=== PATIENT | female | born 1980 | race Caucasian/White ===

== ENCOUNTER 2018-03-08 18:03 | Inpatient (IN) | payer MEDICAID ==
[~2018-03-08] VITALS: Ht 162.6 cm; Wt 103.0 kg
[~2018-03-08 18:03] MED LIST: ABILIFY 5 MG TAB5 M1; ACETAMINOPHEN-1 EAC1 PO; ADDERALL; AMITRIPTYLINE H50 M3 PO; CARAFATE; CARISOPRODOL 3350 MG PO; CIPROFLOXACIN500 M1 PO; CYMBALTA20 MG PO; DEPAKOTE ER500 MG PO; DOXEPIN HCL100 MG PO; FAMOTIDINE 20 M20 MG PO; HYDROCODON-ACE1 EAC7 PO; HYDROCODONE-AP1 EAC6 PO; IBUPROFEN 800800 MG PO; KEPPRA 500 MG500 M1 PO; LYRICA 50 MG50 MG PO; MEDI PO; MEDROLDOSEPACK PO; MONISTAT 31 EACH VG; NEXIUM40 MG PO; NORCO 5-325 TA1 EACH PO; OMEPRAZOLE; PERCOCET 5-3251 EACH PO; PROAIR HFA8.5 GM INH; PROMETHAZINE D480 ML PO; PROZAC; PROZAC 20 MG20 M1 PO; PYRIDIUM100 M1 PO; ROBAXIN 750 MG750 M1 PO; TIZANIDINE HCL2 M1; TRAMADOL 50 MG50 MG PO; WELLBUTRIN 100100 MG; ZPAK PO; [UNRECOGNIZED DRUG - OTHER]
[2018-03-08 18:18] VITALS: BP 155/102
[2018-03-08 18:27] LABS: HEMATOCRIT 41.2 % (37.0-47.0); HEMOGLOBIN 13.8 gm/dL (12.0-15.0); MCH 32.1 pg (26.0-34.0); MCHC 33.6 g/dL (28.0-37.0); MCV 95.6 fL (80.0-100.0); MPV 8.2 fl. (7.2-11.1); NUCLEATED RBCS 0 /100WBC; PLATELET COUNT* 358 thou/uL (150-400); RBC 4.31 mil/uL (4.20-5.00); RDW-CV 13.7 % (10.5-14.5); WBC 21.2 thou/uL (4.0-11.0)
[2018-03-08 18:33] LABS: CALCIUM 8.8 mg/dL (8.5-10.1); POTASSIUM 3.4 mmol/L (3.5-5.1)
[2018-03-08 18:37] LABS: ALBUMIN 3.2 g/dL (3.4-5.0); TOTAL BILIRUBIN 1.1 mg/dL (<0.1-1.0); TOTAL PROTEIN 7.9 g/dL (6.4-8.2)
[2018-03-08 18:54] LABS: URINE BILIRUBIN NEGATIVE (Negative); URINE BLOOD TRACE (Negative); URINE CLARITY SL CLOUDY; URINE COLOR YELLOW; URINE GLUCOSE-RANDOM NEGATIVE (Negative); URINE KETONES TRACE (Negative); URINE LEUKOCYTES-REFLEX 1+ (Negative); URINE NITRITE-REFLEX NEGATIVE (Negative); URINE PROTEIN TRACE (Negative); URINE SPECIFIC GRAVITY >= 1.030 (1.005-1.030); URINE UROBILINOGEN 0.2 E.U./dl (0.2-1.0)
[2018-03-08 19:03] LABS: MUCUS >6 Heavy strn/LPF (None Seen); SQUAMOUS >10 Many /LPF (0-3)
[2018-03-08 19:04] LABS: HYALINE CASTS 0-3 Few /LPF (None Seen)
[2018-03-08 19:05] LABS: BACTERIA-REFLEX >30 Many /HPF (None Seen); CRYSTALS None Seen /LPF (None Seen); URINE WBC-REFLEX >25 Many /HPF (0-5)
[2018-03-08 19:06] LABS: URINE RBC 3-10 Few /HPF (0-2)
[2018-03-08 19:19] LABS: ABSOLUTE LYMPHOCYTES 1.1 thou/uL (0.8-5.3); ABSOLUTE MONOCYTES 0.4 thou/uL (0.0-1.2); ABSOLUTE NEUTROPHILS 19.7 thou/uL (1.6-8.1); CLUMPED PLTS OCCASIONAL; LARGE PLATELETS OCCASIONAL; PLATELET ESTIMATE ADEQUATE
[2018-03-08 21:45] VITALS: BP 108/65
[2018-03-08 21:50] VITALS: BP 124/77
[2018-03-09] MEDS ORDERED: KEPPRA250 MG PO (00:32)
[2018-03-09] MEDS ORDERED: KEPPRA250 MG (00:33)
[2018-03-09 04:02] LABS: ABSOLUTE LYMPHOCYTES 1.2 thou/uL (0.8-5.3); ABSOLUTE MONOCYTES 0.8 thou/uL (0.0-1.2); ABSOLUTE NEUTROPHILS 17.6 thou/uL (1.6-8.1); BASOPHILS 0.1 %; HEMATOCRIT 37.2 % (37.0-47.0); HEMOGLOBIN 12.1 gm/dL (12.0-15.0); LYMPHOCYTES 6.2 %; MCH 31.8 pg (26.0-34.0); MCHC 32.4 g/dL (28.0-37.0); MONOCYTES 4.3 %; MPV 8.5 fl. (7.2-11.1); NUCLEATED RBCS 0 /100WBC; POLYS 89.4 %; RDW-CV 14.2 % (10.5-14.5); WBC 19.7 thou/uL (4.0-11.0)
[2018-03-09 04:23] LABS: PLATELET COUNT* 271 thou/uL (150-400)
[2018-03-09 04:34] LABS: ALBUMIN 2.7 g/dL (3.4-5.0); CALCIUM 8.6 mg/dL (8.5-10.1); POTASSIUM 3.6 mmol/L (3.5-5.1); TOTAL BILIRUBIN 0.7 mg/dL (<0.1-1.0); TOTAL PROTEIN 6.4 g/dL (6.4-8.2)
--- NOTE | 2018-03-09 06:09 | NUR ---
PT ARRIVED ON UNIT, ORIENTED TO ROOM, FALL AGREEMENT WENT OVER AND SIGNED, PT STATED UNDERSTANDING. ASSESSMENT DOCUMENTED. MEDS GIVEN PER E-MAR. PT REPORTED PAIN, PAIN MEDICATION GIVEN PER E-MAR WITH RELIEF. IV PATENT, FLUIDS INFUSING. WILL CONTINUE WITH PLAN OF CARE.
[2018-03-09 08:00] VITALS: BP 118/67
[2018-03-09 12:04] LABS: AMP/METHAMP POSITIVE (Negative); BARBITURATES Negative (Negative); BENZODIAZEPINES Negative (Negative); COCAINE Negative (Negative); METHADONE Negative (Negative); OPIATES Negative (Negative); PCP Negative (Negative); THC POSITIVE (Negative)
[2018-03-09 16:00] VITALS: BP 126/80
--- NOTE | 2018-03-09 16:12 | NUR ---
PT.SLEEPING SOUNDLY. CM DID NOT AWAKEN. RESP.NON LABORED AND REGULAR
--- NOTE | 2018-03-09 17:51 | NUR ---
PATIENT IS ALERT AND ORIENTED TODAY, HAS BEEN DROWSY AND SLEEPING MOST OF THE DAY. PATIENT WILL REQUEST PAIN MEDICATIONS THEN BE ASLEEP IN THE FEW MINUTES IT TAKES TO GET THE ROOM WITH MEDICATIONS, FALLING ASLEEP DURING THE ASSESSMENT TODAY. VITAL SIGNS HAVE BEEN STABLE ON ROOM AIR. PATIENT IS UP AD KRYSTAL IN ROOM. CALL LIGHT IS IN REACH, WILL CONTINUE TO MONITOR.
[2018-03-09 20:15] VITALS: BP 117/61
--- NOTE | 2018-03-10 06:01 | NUR ---
PT SLEPT MOST OF SHIFT. ASSESSMENT DOCUMENTED. MEDS GIVEN PER E-MAR. IV PATENT, FLUIDS INFUSING. PT REPORTED UNCONTROLLED PAIN. PAIN MEDS GIVEN PER E-MAR. PT BECAME VERY TEARFUL AT BEGINING OF SHIFT. PT GIVEN WARM BLANKETS GIVEN TO HOLD TO ABDOMEN TO HELP WITH CRAMPING. WILL CONTINUE WITH PLAN OF CARE.
[2018-03-10 07:40] LABS: HEMATOCRIT 34.7 % (37.0-47.0); HEMOGLOBIN 11.2 gm/dL (12.0-15.0); MCH 31.7 pg (26.0-34.0); MCHC 32.3 g/dL (28.0-37.0); MCV 98.2 fL (80.0-100.0); MPV 8.9 fl. (7.2-11.1); RBC 3.53 mil/uL (4.20-5.00); RDW-CV 13.9 % (10.5-14.5)
[2018-03-10 07:48] LABS: ALBUMIN 2.4 g/dL (3.4-5.0); CALCIUM 8.4 mg/dL (8.5-10.1); CREATININE 0.8 mg/dL (0.6-1.3); POTASSIUM 3.5 mmol/L (3.5-5.1); TOTAL BILIRUBIN 0.3 mg/dL (<0.1-1.0); TOTAL PROTEIN 5.9 g/dL (6.4-8.2)
[2018-03-10 08:20] VITALS: BP 131/79
[2018-03-10] MEDS ORDERED: CEFUROXIME500 MG PO (10:53)
[2018-03-10 10:55] VITALS: BP 131/79
[2018-03-10 16:00] VITALS: BP 132/85
--- NOTE | 2018-03-10 17:00 | NUR ---
SPOKE WITH PT.BRIEFLY. INTRODUCED ROLE OF CM . SHE WAS NOT VERY FORTHCOMING WITH INFORMATION. STATED SHE LIVES WITH HER BOYFRIEND IN AN APT. IS UNEMPLOYED. SHE DOES NOT USE ANY DME. NO HX OF HH. SHE DECLINED INFORMATION ON SUBSTANCE ABUSE. CM WILL BE AVAILABLE FOR ANY DISCHARGE NEEDS.
--- NOTE | 2018-03-10 18:17 | NUR ---
PATIENT HAS BEEN ALERT AND ORIENTED TODAY, PLEASANT TODAY. SOME COMPLAINTS OF PAIN, MOSTLY CRAMPING AND A HEADACHE, THAT WAS CONTROLLED WITH ORAL PAIN MEDICATIONS. PATIENT IS BEING DISCHARGED TO HOME, DISCHARGE INSTRUCTIONS AND PRESCRIPTIONS GIVEN, QUESTIONS ANSWERED FOR PATIENT. PATIENT LEFT VIA WHEEL CHAIR TO HOME.
[2018-03-10 18:19] VITALS: BP 131/79
== END 2018-03-10 18:20 | disposition home or self-care (01) | DRG 103 ==
LOC: M.ERS 18:03 → M.3W 20:17 → M.TBA-ER 20:17 → M.3W 21:48
PROVIDERS: Internal Medicine; Physician Assistant; Surgery; ADMIT Internal Medicine
DX: G43.A0 Cyclical vomiting, in migraine, not intractable (principal); N39.0 Urinary tract infection, site not specified; K21.9 Gastro-esophageal reflux disease without esophagitis; G89.29 Other chronic pain; G40.909 Epilepsy, unspecified, not intractable, without status epilepticus; E86.0 Dehydration; D72.829 Elevated white blood cell count, unspecified; F19.10 Other psychoactive substance abuse, uncomplicated; M54.9 Dorsalgia, unspecified; F17.210 Nicotine dependence, cigarettes, uncomplicated; M48.00 Spinal stenosis, site unspecified; Z90.49 Acquired absence of other specified parts of digestive tract; Z88.6 Allergy status to analgesic agent; Z98.84 Bariatric surgery status; Z80.52 Family history of malignant neoplasm of bladder; Z87.11 Personal history of peptic ulcer disease; Z79.2 Long term (current) use of antibiotics; Z79.899 Other long term (current) drug therapy

== ENCOUNTER 2018-03-20 20:23 | Emergency (ER) | payer MEDICAID ==
[~2018-03-20] VITALS: Ht 172.7 cm
[~2018-03-20 20:23] MED LIST changes: +CEFUROXIME500 MG PO; +KEPPRA250 MG; +KEPPRA250 MG PO
[2018-03-20] MEDS ORDERED: HYDROCODONE (20:33)
[2018-03-20 21:40] VITALS: BP 121/71
--- NOTE | 2018-03-23 11:30 | EKG ---
[place] [address] ELECTROCARDIOGRAM REPORT Name: SHAILESH THURMAN Room: [facility]#: [id number] Admission: 03/20/18 Attend Phys: Discharge: 03/20/18 Date of : 82 Report #: [id number] THIS REPORT FOR: //name// [facility] ED Test Date: 2018-03-20 Test Time: 20:40:33 Pat Name: SHAILESH THURMAN Department: Room: Gender: F Technical Service Engineer: JOE Reid : 1980 Requested By: Cristy Lozoya Order Number: [id number] MD: Gustavo Gaffney Measurements Intervals [place] Rate: 88 P: 19 MA: 147 QRS: 47 QRSD: 88 T: 18 QT: 372 QTc: 450 Interpretive Statements Sinus rhythm Compared to ECG 06/26/2017 14:56:53 No significant changes Electronically Signed On 03-23-2018 11:30:01 CDT by Gustavo Gaffney [email or web address] <ELECTRONICALLY SIGNED> By: Gustavo Gaffney MD, [facility] 03/23/18 1130 39 Gustavo Gaffney MD, FACC /EPI
== END 2018-03-20 21:40 | disposition home or self-care (01) ==
LOC: M.ERS 20:23
DX: R56.9 Unspecified convulsions (principal); K21.9 Gastro-esophageal reflux disease without esophagitis; G89.29 Other chronic pain; M54.9 Dorsalgia, unspecified; F17.210 Nicotine dependence, cigarettes, uncomplicated; Z88.6 Allergy status to analgesic agent

== ENCOUNTER 2018-04-24 14:52 | Emergency (ER) | payer MEDICAID ==
[~2018-04-24] VITALS: Ht 162.6 cm; Wt 90.7 kg
[~2018-04-24 14:52] MED LIST changes: +HYDROCODONE
[2018-04-24 15:34] LABS: HEMATOCRIT 45.1 % (37.0-47.0); HEMOGLOBIN 15.2 gm/dL (12.0-15.0); MCH 32.2 pg (26.0-34.0); MCHC 33.7 g/dL (28.0-37.0); MCV 95.7 fL (80.0-100.0); MPV 8.3 fl. (7.2-11.1); RBC 4.71 mil/uL (4.20-5.00); RDW-CV 14.5 % (10.5-14.5); WBC 9.9 thou/uL (4.0-11.0)
[2018-04-24 15:38] LABS: CALCIUM 8.9 mg/dL (8.5-10.1); POTASSIUM 3.7 mmol/L (3.5-5.1)
[2018-04-24 15:43] LABS: ALBUMIN 3.2 g/dL (3.4-5.0); TOTAL BILIRUBIN 0.2 mg/dL (<0.1-1.0); TOTAL PROTEIN 7.8 g/dL (6.4-8.2)
[2018-04-24 16:00] LABS: ACETAMINOPHEN < 2 ug/mL (10-30); ALCOHOL < 10 mg/dL (<10); SALICYLATE 3.2 mg/dL (2.8-20.0)
[2018-04-24 16:40] LABS: URINE BILIRUBIN NEGATIVE (Negative); URINE BLOOD NEGATIVE (Negative); URINE CLARITY CLEAR; URINE COLOR YELLOW; URINE GLUCOSE-RANDOM NEGATIVE (Negative); URINE KETONES NEGATIVE (Negative); URINE LEUKOCYTES NEGATIVE (Negative); URINE NITRITE POSITIVE (Negative); URINE PROTEIN 1+ (Negative); URINE SPECIFIC GRAVITY >= 1.030 (1.005-1.030); URINE UROBILINOGEN 0.2 E.U./dl (0.2-1.0)
[2018-04-24 16:54] LABS: AMP/METHAMP POSITIVE (Negative); BARBITURATES Negative (Negative); BENZODIAZEPINES Negative (Negative); COCAINE Negative (Negative); METHADONE Negative (Negative); OPIATES POSITIVE (Negative); PCP Negative (Negative); THC POSITIVE (Negative)
[2018-04-24 17:02] LABS: HYALINE CASTS >10 Many /LPF (None Seen); MUCUS 4-6 Moderate strn/LPF (None Seen); SQUAMOUS >10 Many /LPF (0-3)
[2018-04-24 17:03] LABS: BACTERIA >30 Many /HPF (None Seen); CRYSTALS None Seen /LPF (None Seen); URINE RBC None Seen /HPF (0-2); URINE WBC 0-5 Rare /HPF (0-5)
[2018-04-24 17:13] VITALS: BP 173/94
--- NOTE | 2018-04-25 12:40 | EKG ---
[place] [address] ELECTROCARDIOGRAM REPORT Name: SHAILESH THURMAN Room: [facility]#: [id number] Admission: 04/24/18 Attend Phys: Discharge: 04/24/18 Date of : 82 Report #: [id number] THIS REPORT FOR: //name// [facility] ED Test Date: 2018-04-24 Test Time: 14:58:49 Pat Name: SHAILESH THURMAN Department: Room: Gender: F Priming Powder Premix Blender: Franklin PATIÑO : 1980 Requested By: Smitha Edward Order Number: [id number] MD: Jayson Paredes Measurements Intervals [place] Rate: 127 P: 52 [place]: 142 QRS: 76 QRSD: 90 T: 5 QT: 318 QTc: 463 Interpretive Statements Sinus tachycardia Abnormal R-wave progression, late transition ST elev, probable normal early repol pattern Artifact in lead(s) I,II,III,aVR,aVL,aVF and baseline wander in lead(s) V1,V3,V4 Compared to ECG 03/20/2018 20:40:33 ST (T wave) deviation now present Sinus rhythm no longer present Electronically Signed On 04-25-2018 12:40:32 CDT by Jayson Paredes [email or web address] <ELECTRONICALLY SIGNED> By: Jayson Paredes MD, [facility] 04/25/18 1240 1458 1458 Jayson Paredes MD, [facility] /EPI
[2018-04-25] MEDS ORDERED: AMITRIPTYLINE H10 M3 PO (12:57)
[2018-04-25] MEDS ORDERED: LYRICA 75 MG CA75 MG PO ×2 (12:57→14:46)
[2018-04-25] MEDS ORDERED: PROZAC10 MG PO ×2 (12:57→14:46)
[2018-04-25] MEDS ORDERED: DEPAKOTE ER500 MG PO ×2 (12:57→14:46)
[2018-04-25] MEDS ORDERED: KEPPRA 500 MG500 M1 PO (14:46)
== END 2018-04-24 17:18 ==
LOC: M.ERS 14:52
PROVIDERS: Personal Emergency Response Attendant
DX: T40.1X2A Poisoning by heroin, intentional self-harm, initial encounter (principal); T43.622A Poisoning by amphetamines, intentional self-harm, initial encounter; F19.10 Other psychoactive substance abuse, uncomplicated; F41.9 Anxiety disorder, unspecified; K21.9 Gastro-esophageal reflux disease without esophagitis; G89.29 Other chronic pain; M54.9 Dorsalgia, unspecified; G40.909 Epilepsy, unspecified, not intractable, without status epilepticus; F17.210 Nicotine dependence, cigarettes, uncomplicated; Z88.8 Allergy status to other drugs, medicaments and biological substances; Y92.89 Other specified places as the place of occurrence of the external cause

== ENCOUNTER 2018-04-25 12:52 | Emergency (ER) | payer MEDICAID ==
[~2018-04-25] VITALS: Ht 162.6 cm; Wt 96.2 kg
[2018-04-25] MEDS ORDERED: LYRICA 75 MG CA75 MG PO ×2 (12:57→14:46)
[2018-04-25] MEDS ORDERED: AMITRIPTYLINE H10 M3 PO (12:57)
[2018-04-25] MEDS ORDERED: DEPAKOTE ER500 MG PO ×2 (12:57→14:46)
[2018-04-25] MEDS ORDERED: PROZAC10 MG PO ×2 (12:57→14:46)
[2018-04-25 13:38] LABS: ABSOLUTE EOSINOPHILS 0.1 thou/uL (0.0-0.7); ABSOLUTE LYMPHOCYTES 1.1 thou/uL (0.8-5.3); ABSOLUTE MONOCYTES 0.5 thou/uL (0.0-1.2); ABSOLUTE NEUTROPHILS 6.5 thou/uL (1.6-8.1); BASOPHILS 0.4 %; EOSINOPHILS 0.8 %; HEMATOCRIT 42.2 % (37.0-47.0); HEMOGLOBIN 13.9 gm/dL (12.0-15.0); LYMPHOCYTES 13.2 %; MCH 31.8 pg (26.0-34.0); MCV 96.3 fL (80.0-100.0); MONOCYTES 5.6 %; NUCLEATED RBCS 0 /100WBC; PLATELET COUNT* 328 thou/uL (150-400); RBC 4.38 mil/uL (4.20-5.00); RDW-CV 14.1 % (10.5-14.5); WBC 8.1 thou/uL (4.0-11.0)
[2018-04-25 13:43] LABS: CALCIUM 8.7 mg/dL (8.5-10.1); CREATININE 0.8 mg/dL (0.6-1.3); POTASSIUM 3.7 mmol/L (3.5-5.1)
[2018-04-25 13:48] LABS: ALBUMIN 2.8 g/dL (3.4-5.0); TOTAL BILIRUBIN 0.5 mg/dL (<0.1-1.0)
[2018-04-25] MEDS ORDERED: KEPPRA 500 MG500 M1 PO (14:46)
[2018-04-25 15:11] LABS: URINE BILIRUBIN NEGATIVE (Negative); URINE BLOOD TRACE (Negative); URINE CLARITY CLOUDY; URINE COLOR DARK YELLOW; URINE GLUCOSE-RANDOM NEGATIVE (Negative); URINE KETONES TRACE (Negative); URINE LEUKOCYTES-REFLEX 1+ (Negative); URINE PROTEIN NEGATIVE (Negative); URINE UROBILINOGEN 0.2 E.U./dl (0.2-1.0)
[2018-04-25 15:17] LABS: AMP/METHAMP POSITIVE (Negative); BARBITURATES Negative (Negative); BENZODIAZEPINES Negative (Negative); COCAINE Negative (Negative); METHADONE Negative (Negative); OPIATES POSITIVE (Negative); PCP Negative (Negative); THC POSITIVE (Negative)
[2018-04-25 15:19] LABS: URINE NITRITE-REFLEX POSITIVE (Negative)
[2018-04-25 15:22] LABS: BACTERIA-REFLEX >30 Many /HPF (None Seen); HYALINE CASTS >10 Many /LPF (None Seen); MUCUS >6 Heavy strn/LPF (None Seen); SQUAMOUS >10 Many /LPF (0-3); URINE WBC-REFLEX >25 Many /HPF (0-5)
[2018-04-25 15:33] LABS: CALCIUM OXALATE >10 Many /LPF (None Seen); URINE RBC 3-10 Few /HPF (0-2)
[2018-04-25 15:46] VITALS: BP 113/72
--- NOTE | 2018-04-25 16:42 | NUR ---
CM WAS INFORMED BY [facility] THAT THE PATIENT WAS UNABLE TO AFFORD MEDICATION NEEDED AT D/C. PATIENT CURRENTLY IN CUSTODY PF [facility], AND THE NEEDED MEDICATIONS ARE NOT AVAILABLE AT THE FACILITY. CM PROVIDED [facility]'S PHARMACEUTICAL ASSISTANCE AND FAXED THE PATIENTS FACESHEET, AND SCRIPTS TO [address] CM WILL REMAIN AVAILABLET TO ASSIST AND FOLLOW NEEDED.
--- NOTE | 2018-04-26 12:03 | EKG ---
[place] [address] ELECTROCARDIOGRAM REPORT Name: SHAILESH THURMAN Room: [facility]#: [id number] Admission: 04/25/18 Attend Phys: Discharge: 04/25/18 Date of : 82 Report #: [id number] THIS REPORT FOR: //name// [facility] ED Test Date: 2018-04-25 Test Time: 13:19:26 Pat Name: SHAILESH THURMAN Department: Room: Gender: F Back Joiner: : 1980 Requested By: Smitha Edward Order Number: [id number] MD: Jayson Paredes Measurements Intervals [place] Rate: 86 P: 13 [place]: 155 QRS: 54 QRSD: 98 T: 33 QT: 362 QTc: 433 Interpretive Statements Sinus rhythm Compared to ECG 04/24/2018 14:58:49 Sinus tachycardia no longer present ST (T wave) deviation no longer present Electronically Signed On 04-26-2018 12:03:35 CDT by Jayson Paredes [email or web address] <ELECTRONICALLY SIGNED> By: Jayson Paredes MD, [facility] 04/26/18 1203 1319 1319 Jayson Paredes MD, [facility] /EPI
== END 2018-04-25 15:48 | disposition home or self-care (01) ==
LOC: M.ERS 12:52
PROVIDERS: Personal Emergency Response Attendant
DX: G40.909 Epilepsy, unspecified, not intractable, without status epilepticus (principal); K21.9 Gastro-esophageal reflux disease without esophagitis; G89.29 Other chronic pain; M54.9 Dorsalgia, unspecified; F17.210 Nicotine dependence, cigarettes, uncomplicated; F10.10 Alcohol abuse, uncomplicated; F15.90 Other stimulant use, unspecified, uncomplicated; F11.90 Opioid use, unspecified, uncomplicated; Z88.6 Allergy status to analgesic agent

== ENCOUNTER 2019-03-10 10:09 | Emergency (ER) | payer MEDICAID ==
[~2019-03-10] VITALS: Ht 165.1 cm; Wt 74.8 kg
[~2019-03-10 10:09] MED LIST changes: +AMITRIPTYLINE H10 M3 PO; +LYRICA 75 MG CA75 MG PO; +PROZAC10 MG PO
[2019-03-10 10:24] VITALS: BP 138/103
[2019-03-10] MEDS ORDERED: KEFLEX500 M1 PO (10:34)
[2019-03-10] MEDS ORDERED: BACTRIM DS TAB1 EACH PO (10:34)
[2019-03-10] MEDS ORDERED: ACETAMINOPHEN-1 EAC1 PO (10:34)
== END 2019-03-10 10:53 | disposition home or self-care (01) ==
LOC: M.ERS 10:09
DX: L02.416 Cutaneous abscess of left lower limb (principal); F17.210 Nicotine dependence, cigarettes, uncomplicated; M54.9 Dorsalgia, unspecified; G89.29 Other chronic pain; M19.90 Unspecified osteoarthritis, unspecified site; M48.00 Spinal stenosis, site unspecified; Z90.49 Acquired absence of other specified parts of digestive tract; Z88.6 Allergy status to analgesic agent; Z88.8 Allergy status to other drugs, medicaments and biological substances

== ENCOUNTER 2020-12-15 17:50 | Emergency (ER) | payer MEDICAID ==
[~2020-12-15] VITALS: Ht 162.6 cm; Wt 86.2 kg
[~2020-12-15 17:50] MED LIST changes: +BACTRIM DS TAB1 EACH PO; +KEFLEX500 M1 PO
[2020-12-15] MEDS ORDERED: BACTRIM DS TAB1 EACH PO (18:04)
[2020-12-15] MEDS ORDERED: CLEOCIN HCL300 MG PO (18:10)
[2020-12-15 18:12] VITALS: BP 165/65
== END 2020-12-15 18:12 | disposition home or self-care (01) ==
LOC: M.ERS 17:50
DX: A49.02 Methicillin resistant Staphylococcus aureus infection, unspecified site (principal); K21.9 Gastro-esophageal reflux disease without esophagitis; G89.29 Other chronic pain; F17.210 Nicotine dependence, cigarettes, uncomplicated; Z88.6 Allergy status to analgesic agent

== ENCOUNTER 2020-12-16 11:17 | Emergency (ER) | payer MEDICAID ==
[~2020-12-16] VITALS: Ht 162.6 cm; Wt 86.2 kg
[~2020-12-16 11:17] MED LIST changes: +CLEOCIN HCL300 MG PO
[2020-12-16 11:49] VITALS: BP 138/72
== END 2020-12-16 11:49 ==
LOC: M.ERS 11:17
DX: F41.0 Panic disorder [episodic paroxysmal anxiety] (principal); G89.29 Other chronic pain; K21.9 Gastro-esophageal reflux disease without esophagitis; F17.210 Nicotine dependence, cigarettes, uncomplicated; Z88.6 Allergy status to analgesic agent

== ENCOUNTER 2020-12-17 06:11 | Inpatient (IN) | payer MEDICAID ==
[~2020-12-17] VITALS: Ht 162.6 cm; Wt 93.4 kg
--- NOTE | ~2020-12-17 | CON ---
[address] [address] CONSULTATION Name: SHAILESH THURMAN Room: [address] IN ..#: [id number] Admission: 12/17/20 Attend Phys: George Childers Discharge: 12/17/20 Date of : 82 Report #: [id number] THIS REPORT FOR: cc: Gautam Joseph Chad W. DO ~ Akua Abarca DO DATE OF SERVICE: 12/17/2020 NEUROLOGY CONSULT HISTORY OF PRESENT ILLNESS: The patient is a 39-year-old female who is in intermediate, has a fighting when she had two witnessed events that were thought to be seizures. She was brought to the Emergency Room. These seizures lasted approximately 30 and 45 seconds. EMS states that she was not postictal when they arrived and she was not postictal in the ER. She was tremulous and stated that her joints were aching. The patient has a history of alcohol use. She drinks approximately 1 pint of alcohol a day. She also skin pops or does heroin. She has an abscess on the left buttock, but states that this is not an area that she recently skin pop. The patient has no recollection of the events. She did not bite her tongue. PAST MEDICAL HISTORY: Gastroesophageal reflux, chronic back pain, alcohol withdrawal seizures. PAST SURGICAL HISTORY: Right knee arthroscopy, cholecystectomy, gastric bypass. MEDICATIONS: Amitriptyline 10 mg at bedtime, fluoxetine 10 mg daily, Depakote ER 500 mg twice a day, pregabalin 150 mg twice a day. ALLERGIES: NONSTEROIDAL ANTI-INFLAMMATORIES AND TRAMADOL. PHYSICAL EXAMINATION: VITAL SIGNS: Temperature 36.6, pulse rate 97, respiratory rate 14, blood pressure 140/93, bedside pulse oximetry 98% on room air. NEUROLOGIC: Cranial nerves 2-12 are grossly intact. Motor exam demonstrates symmetrical strength in all 4 extremities with tone and bulk normal. Reflexes are 2/4 in the upper and lower extremities. Plantar responses are mute. There is no evidence of dysmetria. Gait was not tested. The patient is agitated in bed. A help to rearrange recovers and that helps somewhat. LABORATORY DATA: Hematology: White blood cell count 8.8, hemoglobin 12.5, hematocrit 37.4, MCV 89.2, platelet count 335,000. INR 1. Urinalysis 2+ [place] [address] CONSULTATION Name: SHAILESH THURMAN Room: [address]#: [id number] Admission: 12/17/20 Attend Phys: George Childers Discharge: 12/17/20 Date of : 82 Report #: [id number] ketones, leukocyte esterase negative, rbc's few, wbc's, many. Chemistry: Sodium 140, potassium 3.5, chloride 106, carbon dioxide 22, BUN 7, creatinine 0.6, glucose 93. Calcium 8.9, magnesium 1.5. Liver functions normal with the exception of alkaline phosphatase, which was 127, creatinine kinase 95, total protein 7, albumin 2.9. Toxicology not received. IMAGING STUDIES: Chest x-ray, no acute pulmonary process. IMPRESSION: At this point, it is difficult to know whether the patient actually had a seizure. There is no elevated white blood cell count. The CPK is normal. The patient states that she has had seizures before related to alcohol withdrawal. I saw the patient's medication list from the ER that she is on Depakote. She tells me this is a mood stabilizer. I also see that she is on pregabalin. She told me this was for seizure disorder. It was prescribed by Dr. Barksdale, who is her primary care provider. She has received one dose of levetiracetam. I suspect her seizures were related to alcohol withdrawal, but we will continue levetiracetam until a CT head and EEG can be done. Dr. Buckley will be following the patient as of Friday and he can make a decision as to whether or not to continue the levetiracetam. I thank you for your kind referral of the patient. The patient may not require any specific antiepileptic medication. She is now going to be on a lorazepam drip and that in and of itself should prevent seizures. The patient is currently in bed with seizure precautions and if she does have a seizure, I have asked the nursing staff to call me. By: [id number] Abarca DO /nt
[2020-12-17 06:13] VITALS: BP 141/91
[2020-12-17 06:44] LABS: ABSOLUTE BASOPHILS 0.1 thou/uL (0.0-0.2); ABSOLUTE EOSINOPHILS 0.1 thou/uL (0.0-0.7); ABSOLUTE MONOCYTES 0.6 thou/uL (0.0-1.2); ABSOLUTE NEUTROPHILS 7.1 thou/uL (1.6-8.1); BASOPHILS 0.8 %; EOSINOPHILS 0.6 %; HEMATOCRIT 37.4 % (37.0-47.0); HEMOGLOBIN 12.5 gm/dL (12.0-15.0); LYMPHOCYTES 11.3 %; MCH 29.8 pg (26.0-34.0); MCHC 33.4 g/dL (28.0-37.0); MCV 89.2 fL (80.0-100.0); MONOCYTES 6.4 %; MPV 8.3 fl. (7.2-11.1); NUCLEATED RBCS 0 /100WBC; PLATELET COUNT* 335 thou/uL (150-400); POLYS 80.9 %; RDW-CV 14.2 % (10.5-14.5); WBC 8.8 thou/uL (4.0-11.0)
[2020-12-17 06:54] LABS: CALCIUM 8.9 mg/dL (8.5-10.1); CREATININE 0.6 mg/dL (0.6-1.3); POTASSIUM 3.5 mmol/L (3.5-5.1)
[2020-12-17 06:55] LABS: PROTIME 10.3 Seconds (9.20-11.50)
[2020-12-17 06:58] LABS: ALBUMIN 2.9 g/dL (3.4-5.0); MAGNESIUM 1.5 mg/dL (1.8-2.4); TOTAL BILIRUBIN 0.4 mg/dL (<0.1-1.0)
[2020-12-17 07:35] LABS: URINE BILIRUBIN NEGATIVE (Negative); URINE BLOOD NEGATIVE (Negative); URINE CLARITY CLEAR; URINE COLOR YELLOW; URINE GLUCOSE-RANDOM NEGATIVE (Negative); URINE KETONES 2+ (Negative); URINE LEUKOCYTES-REFLEX NEGATIVE (Negative); URINE NITRITE-REFLEX NEGATIVE (Negative); URINE PROTEIN NEGATIVE (Negative); URINE UROBILINOGEN 0.2 E.U./dl (0.2-1.0)
[2020-12-17 08:09] VITALS: BP 140/93
[2020-12-17 11:22] LABS: AMP/METHAMP Negative (Negative); BARBITURATES Negative (Negative); BENZODIAZEPINES Negative (Negative); COCAINE Negative (Negative); METHADONE Negative (Negative); OPIATES Negative (Negative); PCP Negative (Negative); THC Negative (Negative)
[2020-12-17 12:23] VITALS: BP 140/93
--- NOTE | 2020-12-18 11:08 | EKG ---
[place] [address] ELECTROCARDIOGRAM REPORT Name: SHAILESH THURMAN Room: [address] IN M.R.#: [id number] Admission: 12/17/20 Attend Phys: Alex Ortiz Discharge: 12/17/20 Date of : 82 Date of Service: 12/17/20 0632 Report #: [id number] THIS REPORT FOR: //name// [facility] ED Test Date: 2020-12-17 Test Time: 06:32:12 Pat Name: SHAILESH THURMAN Department: Room: [facility] Gender: F Drivability Technician: NOEL : 1980 Requested By: Cristy Lozoya Order Number: [id number] MD: Abdi Byrd Measurements Intervals [employer] Rate: 80 P: 41 NM: 146 QRS: 95 QRSD: 87 T: 37 QT: 373 QTc: 431 Interpretive Statements Sinus rhythm Borderline right axis deviation Compared to ECG 04/25/2018 13:19:26 No significant changes Electronically Signed On 12-18-2020 11:07:55 CDT by Abdi Byrd [email or web address] <ELECTRONICALLY SIGNED> By: Abdi Byrd MD, FAC 12/18/20 1107 0632 0632 Abdi Byrd MD, [facility] /EPI
== END 2020-12-17 12:17 | disposition left against medical advice (07) | DRG 101 ==
LOC: M.ERS 06:11 → M.TBA-ER 06:38 → M.ICU 08:10
PROVIDERS: Emergency Medicine; Internal Medicine; ADMIT Internal Medicine; ATTEND Internal Medicine
DX: G40.509 Epileptic seizures related to external causes, not intractable, without status epilepticus (principal); L03.317 Cellulitis of buttock; F10.139 Alcohol abuse with withdrawal, unspecified; K21.9 Gastro-esophageal reflux disease without esophagitis; G89.29 Other chronic pain; M54.9 Dorsalgia, unspecified; Y90.9 Presence of alcohol in blood, level not specified; F11.10 Opioid abuse, uncomplicated; F17.210 Nicotine dependence, cigarettes, uncomplicated; Z53.21 Procedure and treatment not carried out due to patient leaving prior to being seen by health care provider; Z20.822 Contact with and (suspected) exposure to COVID-19; Z79.899 Other long term (current) drug therapy; Z98.84 Bariatric surgery status; Z90.49 Acquired absence of other specified parts of digestive tract